=== PATIENT | female | born 1995 | race Caucasian/White ===

== ENCOUNTER 2017-02-08 10:15 | Day surgery (SDC) | payer OTHER, MEDICAID ==
[~2017-02-08 10:15] MED LIST: ADVIL COLD & S1 EAC2 PO; APRI 28 DAY TA1 EACH PO; BIOTIN10000 MC1 PO; BUTALBIT-ACETA1 EAC1 PO; COUGHTAB200 M1 PO; CYCLOBENZAPRINE10 M1 PO; HIPREX1 GM PO; LIDOCAINE GEL 2% TOP; LIDOCAINE PAD TP; MELATONIN3 M4 PO; MIDODRINE HCL5 M1 PO; MILK OF MAGNESIA PO; MYRBETRIQ50 M1 PO; NEURONTIN600 M1 PO; OMEPRAZOLE20 M4 PO; SENEXON-S TABL1 EAC1 PO; SIMETHICONE80 M3 PO; TRANSDERM TOP; TRIMETHOPRIM100 M1 PO; TYLENOL325 M2 PO; ULTRAM50 M1 PO; VITAMIN C500 M3 PO; ZANAFLEX4 M3 PO; [UNRECOGNIZED DRUG - OTHER] AP; [UNRECOGNIZED DRUG - OTHER] PO
[2017-02-08 11:12] LABS: BASO % 0.2 % (0-2); EOS % 2.2 % (0-7); EOSINOPHIL ABSOLUTE COUNT 0.1 tho/cmm (0.0-0.7); HCT-HEMATOCRIT 38.9 % (34.0-49.0); HGB-HEMOGLOBIN 12.8 gm/dl (12.0-15.5); IMMATURE GRANULOCYTES ABSOLUTE 0.02 tho/cmm (0-0.03); IMMATURE GRANULOCYTES PERCENT 0.4 % (0-0.3); LYMPH % 35.9 % (20-45); LYMPH ABSOLUTE COUNT 1.8 tho/cmm (0.8-4.5); MCH (MEAN CORPUSCULAR HGB) 27.2 pg (28.0-32.0); MCHC MEAN CORPUSCULAR HGB CONC 32.9 % (32.0-36.0); MCV (MEAN CELL VOLUME) 82.8 fl (82.0-96.0); MONO % 11.2 % (0-12); MONOCYTE ABSOLUTE COUNT 0.6 tho/cmm (0.0-1.2); NEUTROPHIL ABSOLUTE COUNT 2.5 tho/cmm (1.6-8.0); NEUTROPHIL-AUTOMATED 2.5 tho/cmm (1.6-8.0); NEUTROPHILS % 50.1 % (40-80); PLATELET COUNT 220 tho/cmm (150-450); RED CELL DISTRIBUTION WIDTH 13.8 % (12.4-16.4); WHITE BLOOD COUNT 4.9 tho/cmm (4.0-10.0)
[2017-02-08] MEDS ORDERED: ZOLOFT100 M1 PO (14:12)
[2017-02-08] MEDS ORDERED: BUSPIRONE HCL10 M2 PO (14:12)
[2017-02-08] MEDS ORDERED: BACLOFEN20 M1 PO (15:01)
[2017-02-08] MEDS ORDERED: ZYRTEC10 M7 PO (15:09)
[2017-02-08] MEDS ORDERED: VESICARE10 M1 PO (15:09)
[2017-02-08] MEDS ORDERED: FLUDROCORTISON0.1 M1 PO (15:09)
[2017-02-09] MEDS ORDERED: NORCO 5-325 TA1 EACH PO (10:56)
[2017-02-09] MEDS ORDERED: COLACE100 M1 PO (10:56)
[2017-02-10 06:06] LABS: URINE BILIRUBIN NEGATIVE (NEG); URINE BLOOD NEGATIVE (NEG); URINE GLUCOSE (UA) NEGATIVE (NEG); URINE KETONE NEGATIVE (NEG); URINE LEUKOCYTE ESTERASE NEGATIVE (NEG); URINE NITRITE NEGATIVE (NEG); URINE PROTEIN NEGATIVE (NEG)
[2017-02-10 06:16] LABS: URINE APPEARANCE CLEAR; URINE COLOR YELLOW
== END 2017-02-10 20:30 ==
LOC: SRG 10:15 → SHSC 10:18 → ORW 11:45 → BURN 12:56
PROVIDERS: Anesthesiology; Surgery
PROC: 0HQJXZZ Repair Left Upper Leg Skin, External Approach (ICD-10-PCS; principal; 2017-02-08)
DX: T24.012A Burn of unspecified degree of left thigh, initial encounter (principal); F41.9 Anxiety disorder, unspecified; F32.9 Major depressive disorder, single episode, unspecified; K21.9 Gastro-esophageal reflux disease without esophagitis; G82.20 Paraplegia, unspecified; I10 Essential (primary) hypertension; Z79.2 Long term (current) use of antibiotics; Z79.899 Other long term (current) drug therapy; Z88.1 Allergy status to other antibiotic agents; Z98.1 Arthrodesis status; Z98.890 Other specified postprocedural states; X19.XXXA Contact with other heat and hot substances, initial encounter
CPT/HCPCS: J0171; J0690; J2405; J7030

== ENCOUNTER 2017-02-25 00:15 | Inpatient (IN) | payer OTHER, MEDICAID ==
[~2017-02-25 00:15] MED LIST changes: +BACLOFEN20 M1 PO; +BUSPIRONE HCL10 M2 PO; +COLACE100 M1 PO; +FLUDROCORTISON0.1 M1 PO; +NORCO 5-325 TA1 EACH PO; +VESICARE10 M1 PO; +ZOLOFT100 M1 PO; +ZYRTEC10 M7 PO
[2017-02-25 01:06] LABS: BASO % 0.4 % (0-2); EOS % 0.5 % (0-7); HGB-HEMOGLOBIN 13.6 gm/dl (12.0-15.5); IMMATURE GRANULOCYTES ABSOLUTE 0.02 tho/cmm (0-0.03); IMMATURE GRANULOCYTES PERCENT 0.4 % (0-0.3); LYMPH % 17.1 % (20-45); MCV (MEAN CELL VOLUME) 82.3 fl (82.0-96.0); MEAN PLATELET VOLUME 9.6 cmc (9.4-12.4); MONO % 7.6 % (0-12); MONOCYTE ABSOLUTE COUNT 0.4 tho/cmm (0.0-1.2); NEUTROPHIL ABSOLUTE COUNT 4.2 tho/cmm (1.6-8.0); NEUTROPHIL-AUTOMATED 4.2 tho/cmm (1.6-8.0); PLATELET COUNT 264 tho/cmm (150-450); RED BLOOD COUNT 4.86 mil/cmm (4.00-5.20); RED CELL DISTRIBUTION WIDTH 14.3 % (12.4-16.4); WHITE BLOOD COUNT 5.7 tho/cmm (4.0-10.0)
[2017-02-25 01:27] LABS: ALB/GLOB RATIO 0.6 (0.8-2.0); ALBUMIN 3.1 g/dl (3.5-5.0); ALKALINE PHOSPHATASE 133 U/L (33-138); ALT/SGPT 42 U/L (12-78); BILIRUBIN,TOTAL 0.5 mg/dl (0-1.5); BLOOD UREA NITROGEN 12 mg/dl (6-24); CALCIUM 8.6 mg/dl (8.5-10.5); CARBON DIOXIDE-VENOUS 26 mmol/L (22-32); CHLORIDE 103 mmol/l (96-110); CREATININE 0.66 mg/dl (0.50-1.10); GLUCOSE 109 mg/dL (70-110); LIPASE 185 U/L (73-393); SODIUM 137 mmol/L (135-145); eGFR VALUE FOR BLACK >90 mL/Min
[2017-02-25 01:33] LABS: PREGNANCY-SERUM NEGATIVE (NEGATIVE)
[2017-02-25 01:38] LABS: ANION GAP 12 mmol/L (0-20); AST/SGOT 40 U/L (10-40)
[2017-02-25 01:39] LABS: POTASSIUM 4.1 mmol/L (3.7-5.1)
[2017-02-25 01:55] LABS: URINE BILIRUBIN NEGATIVE (NEG); URINE BLOOD NEGATIVE (NEG); URINE GLUCOSE (UA) NEGATIVE (NEG); URINE KETONE MODERATE (NEG); URINE LEUKOCYTE ESTERASE POSITIVE (NEG); URINE NITRITE NEGATIVE (NEG); URINE PROTEIN MODERATE (NEG); URINE SPECIFIC GRAVITY 1.015 (1.003-1.030)
[2017-02-25 01:56] LABS: URINE APPEARANCE HAZY; URINE COLOR DARK YELLOW
[2017-02-25 02:03] LABS: URINE RBC 0 /[HPF] (0-5)
[2017-02-25 02:04] LABS: URINE MUCUS 2+
[2017-02-25] MEDS ORDERED: BACLOFEN PUMP (10:52)
[2017-02-25] MEDS ORDERED: CRANBERRY500 M2 PO (11:21)
[2017-02-25] MEDS ORDERED: BACLOFEN (11:22)
[2017-02-25] MEDS ORDERED: KEFLEX250 M2 PO (11:24)
[2017-02-26 07:25] LABS: BASO % 0.5 % (0-2); EOSINOPHIL ABSOLUTE COUNT 0.1 tho/cmm (0.0-0.7); HCT-HEMATOCRIT 38.1 % (34.0-49.0); HGB-HEMOGLOBIN 12.2 gm/dl (12.0-15.5); IMMATURE GRANULOCYTES ABSOLUTE 0.02 tho/cmm (0-0.03); IMMATURE GRANULOCYTES PERCENT 0.5 % (0-0.3); LYMPH % 35.5 % (20-45); LYMPH ABSOLUTE COUNT 1.4 tho/cmm (0.8-4.5); MCH (MEAN CORPUSCULAR HGB) 27.2 pg (28.0-32.0); MEAN PLATELET VOLUME 9.6 cmc (9.4-12.4); MONO % 11.5 % (0-12); MONOCYTE ABSOLUTE COUNT 0.5 tho/cmm (0.0-1.2); PLATELET COUNT 224 tho/cmm (150-450); RED BLOOD COUNT 4.48 mil/cmm (4.00-5.20); RED CELL DISTRIBUTION WIDTH 14.9 % (12.4-16.4)
[2017-02-26 08:04] LABS: ANION GAP 12 mmol/L (0-20); BLOOD UREA NITROGEN 7 mg/dl (6-24); CALCIUM 8.3 mg/dl (8.5-10.5); CARBON DIOXIDE-VENOUS 24 mmol/L (22-32); CHLORIDE 111 mmol/l (96-110); CREATININE 0.66 mg/dl (0.50-1.10); GLUCOSE 102 mg/dL (70-110); SODIUM 143 mmol/L (135-145); eGFR VALUE FOR BLACK >90 mL/Min
[2017-02-26] MEDS ORDERED: MILK OF MAGNESIA PO (12:35)
[2017-02-26] MEDS ORDERED: MIRALAX17 G2 PO (12:36)
== END 2017-02-26 21:05 | disposition home health service (06) | DRG 389 ==
LOC: EDMED 00:15 → EMR2 04:47 → 5WD 06:33
PROVIDERS: Emergency Medicine; Internal Medicine; ADMIT Hospitalist
DX: K56.7 Ileus, unspecified (principal); G82.20 Paraplegia, unspecified; N31.9 Neuromuscular dysfunction of bladder, unspecified; Z88.1 Allergy status to other antibiotic agents; Z88.8 Allergy status to other drugs, medicaments and biological substances; F32.9 Major depressive disorder, single episode, unspecified; F41.9 Anxiety disorder, unspecified; R50.9 Fever, unspecified; Z98.1 Arthrodesis status; Z98.890 Other specified postprocedural states; Z87.898 Personal history of other specified conditions
CPT/HCPCS: J2270; J2405; J7030; P9612; Q9967

== ENCOUNTER 2017-03-01 13:12 | Inpatient (IN) | payer OTHER, MEDICAID ==
[~2017-03-01 13:12] MED LIST changes: +BACLOFEN; +BACLOFEN PUMP; +CRANBERRY500 M2 PO; +KEFLEX250 M2 PO; +MIRALAX17 G2 PO
[2017-03-01] MEDS ORDERED: MACROBID 100 M100 M1 PO (14:12)
[2017-03-01 14:28] LABS: BASO % 0.4 % (0-2); EOS % 1.6 % (0-7); EOSINOPHIL ABSOLUTE COUNT 0.1 tho/cmm (0.0-0.7); HCT-HEMATOCRIT 42.1 % (34.0-49.0); IMMATURE GRANULOCYTES ABSOLUTE 0.03 tho/cmm (0-0.03); IMMATURE GRANULOCYTES PERCENT 0.6 % (0-0.3); LYMPH % 20.6 % (20-45); MCH (MEAN CORPUSCULAR HGB) 27.7 pg (28.0-32.0); MCHC MEAN CORPUSCULAR HGB CONC 33.3 % (32.0-36.0); MCV (MEAN CELL VOLUME) 83.2 fl (82.0-96.0); MONO % 6.4 % (0-12); MONOCYTE ABSOLUTE COUNT 0.3 tho/cmm (0.0-1.2); NEUTROPHIL ABSOLUTE COUNT 3.5 tho/cmm (1.6-8.0); NEUTROPHIL-AUTOMATED 3.5 tho/cmm (1.6-8.0); NEUTROPHILS % 70.4 % (40-80); PLATELET COUNT 290 tho/cmm (150-450); RED BLOOD COUNT 5.06 mil/cmm (4.00-5.20); RED CELL DISTRIBUTION WIDTH 14.4 % (12.4-16.4)
[2017-03-01 15:00] LABS: ALB/GLOB RATIO 0.6 (0.8-2.0); ALBUMIN 3.4 g/dl (3.5-5.0); ALKALINE PHOSPHATASE 151 U/L (33-138); ALT/SGPT 108 U/L (12-78); ANION GAP 14 mmol/L (0-20); AST/SGOT 47 U/L (10-40); BILIRUBIN,TOTAL 0.4 mg/dl (0-1.5); BLOOD UREA NITROGEN 16 mg/dl (6-24); CALCIUM 9.7 mg/dl (8.5-10.5); CARBON DIOXIDE-VENOUS 27 mmol/L (22-32); CHLORIDE 103 mmol/l (96-110); CREATININE 0.57 mg/dl (0.50-1.10); GLUCOSE 101 mg/dL (70-110); SODIUM 140 mmol/L (135-145); eGFR VALUE FOR BLACK >90 mL/Min
[2017-03-01 17:09] LABS: URINE BILIRUBIN NEGATIVE (NEG); URINE BLOOD NEGATIVE (NEG); URINE GLUCOSE (UA) NEGATIVE (NEG); URINE KETONE NEGATIVE (NEG); URINE LEUKOCYTE ESTERASE POSITIVE (NEG); URINE NITRITE NEGATIVE (NEG); URINE PROTEIN NEGATIVE (NEG)
[2017-03-01 17:13] LABS: URINE APPEARANCE CLOUDY; URINE COLOR YELLOW
[2017-03-01 17:22] LABS: URINE AMORPHOUS 2+; URINE BACTERIA 3+; URINE RBC 0 /[HPF] (0-5)
[2017-03-02 05:13] LABS: ANION GAP 14 mmol/L (0-20); BLOOD UREA NITROGEN 12 mg/dl (6-24); CALCIUM 8.6 mg/dl (8.5-10.5); CARBON DIOXIDE-VENOUS 25 mmol/L (22-32); CHLORIDE 107 mmol/l (96-110); CREATININE 0.64 mg/dl (0.50-1.10); GLUCOSE 111 mg/dL (70-110); PHOSPHOROUS 3.6 mg/dl (2.5-4.9); SODIUM 142 mmol/L (135-145); eGFR VALUE FOR BLACK >90 mL/Min
[2017-03-02 05:40] LABS: PREGNANCY-SERUM NEGATIVE (NEGATIVE)
[2017-03-03 05:54] LABS: ALBUMIN 2.5 g/dl (3.5-5.0); ALKALINE PHOSPHATASE 116 U/L (33-138); ALT/SGPT 128 U/L (12-78); BILIRUBIN,TOTAL 0.5 mg/dl (0-1.5); BLOOD UREA NITROGEN 4 mg/dl (6-24); CALCIUM 8.2 mg/dl (8.5-10.5); CARBON DIOXIDE-VENOUS 25 mmol/L (22-32); CHLORIDE 110 mmol/l (96-110); CREATININE 0.58 mg/dl (0.50-1.10); GLUCOSE 123 mg/dL (70-110); SODIUM 141 mmol/L (135-145); eGFR VALUE FOR BLACK >90 mL/Min
[2017-03-03 05:56] LABS: ALB/GLOB RATIO 0.6 (0.8-2.0); ANION GAP 10 mmol/L (0-20); AST/SGOT 85 U/L (10-40); POTASSIUM 4.1 mmol/L (3.7-5.1)
[2017-03-07] MEDS ORDERED: DULCOLAX10 MG PR (11:28)
[2017-03-07] MEDS ORDERED: REGLAN10 M2 PO (11:29)
[2017-03-07] MEDS ORDERED: FLEET ENEMA133 ML PR (11:30)
[2017-03-07] MEDS ORDERED: PENICILLIN V P500 M1 PO (11:35)
[2017-03-07] MEDS ORDERED: MIRALAX17 G2 PO (12:49)
== END 2017-03-07 13:50 | disposition home health service (06) | DRG 392 ==
LOC: EDMED 13:12 → EMR2 18:01 → 5WE 19:07
PROVIDERS: Hospitalist; Internal Medicine; Nurse Practitioner Family; ADMIT Hospitalist
DX: K59.09 Other constipation (principal); G82.20 Paraplegia, unspecified; K59.2 Neurogenic bowel, not elsewhere classified; T83.518A Infection and inflammatory reaction due to other urinary catheter, initial encounter; N31.9 Neuromuscular dysfunction of bladder, unspecified; N39.0 Urinary tract infection, site not specified; F41.9 Anxiety disorder, unspecified; F32.9 Major depressive disorder, single episode, unspecified; B95.2 Enterococcus as the cause of diseases classified elsewhere; Z88.1 Allergy status to other antibiotic agents; Z79.899 Other long term (current) drug therapy; Y84.6 Urinary catheterization as the cause of abnormal reaction of the patient, or of later complication, without mention of misadventure at the time of the procedure
CPT/HCPCS: C9113; G8978-GP-CL; G8979-GP-CL; G8980-GP-CL; J0696; J1650; J2212; J2270; J2405; J2765; J3480; P9612; Q9967

== ENCOUNTER 2017-03-09 18:54 | Emergency (ER) | payer OTHER, MEDICAID ==
[~2017-03-09 18:54] MED LIST changes: +DULCOLAX10 MG PR; +FLEET ENEMA133 ML PR; +MACROBID 100 M100 M1 PO; +PENICILLIN V P500 M1 PO; +REGLAN10 M2 PO
[2017-03-09] MEDS ORDERED: KEFLEX250 M2 PO (20:26)
[2017-03-09] MEDS ORDERED: BIOTIN10000 MC1 PO (20:27)
[2017-03-09 21:28] LABS: BASO % 0.6 % (0-2); EOS % 2.1 % (0-7); EOSINOPHIL ABSOLUTE COUNT 0.1 tho/cmm (0.0-0.7); HCT-HEMATOCRIT 41.8 % (34.0-49.0); HGB-HEMOGLOBIN 13.9 gm/dl (12.0-15.5); IMMATURE GRANULOCYTES ABSOLUTE 0.02 tho/cmm (0-0.03); IMMATURE GRANULOCYTES PERCENT 0.4 % (0-0.3); LYMPH % 27.5 % (20-45); LYMPH ABSOLUTE COUNT 1.3 tho/cmm (0.8-4.5); MCH (MEAN CORPUSCULAR HGB) 27.6 pg (28.0-32.0); MCHC MEAN CORPUSCULAR HGB CONC 33.3 % (32.0-36.0); MCV (MEAN CELL VOLUME) 82.9 fl (82.0-96.0); MEAN PLATELET VOLUME 9.8 cmc (9.4-12.4); MONO % 12.4 % (0-12); MONOCYTE ABSOLUTE COUNT 0.6 tho/cmm (0.0-1.2); NEUTROPHIL ABSOLUTE COUNT 2.7 tho/cmm (1.6-8.0); NEUTROPHIL-AUTOMATED 2.7 tho/cmm (1.6-8.0); PLATELET COUNT 276 tho/cmm (150-450); RED BLOOD COUNT 5.04 mil/cmm (4.00-5.20); RED CELL DISTRIBUTION WIDTH 14.4 % (12.4-16.4); WHITE BLOOD COUNT 4.7 tho/cmm (4.0-10.0)
[2017-03-09 21:42] LABS: ALB/GLOB RATIO 0.6 (0.8-2.0); ALBUMIN 3.2 g/dl (3.5-5.0); ALKALINE PHOSPHATASE 123 U/L (33-138); ALT/SGPT 53 U/L (12-78); ANION GAP 13 mmol/L (0-20); AST/SGOT 19 U/L (10-40); BILIRUBIN,TOTAL 0.3 mg/dl (0-1.5); BLOOD UREA NITROGEN 18 mg/dl (6-24); CALCIUM 9.2 mg/dl (8.5-10.5); CARBON DIOXIDE-VENOUS 27 mmol/L (22-32); CHLORIDE 102 mmol/l (96-110); CREATININE 0.63 mg/dl (0.50-1.10); GLUCOSE 87 mg/dL (70-110); POTASSIUM 3.7 mmol/L (3.7-5.1); SODIUM 138 mmol/L (135-145); eGFR VALUE FOR BLACK >90 mL/Min
[2017-03-09 22:06] LABS: URINE BILIRUBIN NEGATIVE (NEG); URINE BLOOD NEGATIVE (NEG); URINE GLUCOSE (UA) NEGATIVE (NEG); URINE KETONE NEGATIVE (NEG); URINE LEUKOCYTE ESTERASE POSITIVE (NEG); URINE NITRITE NEGATIVE (NEG); URINE PROTEIN SMALL (NEG)
[2017-03-09 22:07] LABS: URINE APPEARANCE CLEAR; URINE COLOR YELLOW
[2017-03-09 22:15] LABS: URINE EPITHELIAL CELLS 0-5 /[HPF] (0-10); URINE MUCUS 1+; URINE RBC 0 /[HPF] (0-5)
== END 2017-03-09 23:11 ==
LOC: EDMED 18:54
PROVIDERS: Emergency Medicine
DX: R10.9 Unspecified abdominal pain (principal)
CPT/HCPCS: J7030

== ENCOUNTER 2017-03-29 06:03 | Day surgery (SDC) | payer OTHER, MEDICAID | END 2017-03-30 13:11 | disposition home health service (06) | LOC: SRG 06:03 → SHSC 06:07 → BURN 08:44 | PROC: 0HR8X74 Replacement of Buttock Skin with Autologous Tissue Substitute, Partial Thickness, External Approach (ICD-10-PCS; principal; 2017-03-29) | DX: T21.05XA Burn of unspecified degree of buttock, initial encounter (principal); F41.9 Anxiety disorder, unspecified; F32.9 Major depressive disorder, single episode, unspecified; K21.9 Gastro-esophageal reflux disease without esophagitis; G82.20 Paraplegia, unspecified; R51 Headache; N31.9 Neuromuscular dysfunction of bladder, unspecified; Z79.899 Other long term (current) drug therapy; Z88.1 Allergy status to other antibiotic agents; Z98.1 Arthrodesis status; Z98.890 Other specified postprocedural states | CPT/HCPCS: J0171; J0690; J1580; J2405; J2765; J3010; J3370 ==